=== PATIENT | male | born 1950 | race Caucasian/White ===

== ENCOUNTER → 2019-04-14 09:34 | Outpatient (CLI) | payer MEDICARE, BC ==
[2014-09-24 08:54] VITALS: BMI 35.7
[~2019-04-14 09:34] MED LIST: BAYER CHEWABLE81 MG PO; COREG12.5 MG PO; FISH OIL 1,0001 CA1 PO; GLIPIZIDE10 MG PO; GLUCOPHAGE1000 MG; GLUCOPHAGE1000 MG PO; JANUVIA100 MG PO; LISINOPRIL-HCTZ1 TA2 PO; PLAVIX75 MG; ZOCOR40 MG PO
--- NOTE | 2019-04-17 09:40 | ST ---
PATIENT:BETTY BRYAN MEDICAL RECORD: [id number] SEX: M [facility] ORDER #: ADMISSION DATE: 04/14/19 AGE OF PATIENT: 68 REFERRING PHYSICIAN: INTERPRETING PHYSICIAN: VIK DICKSON MD DATE OF SERVICE: 04/14/2019 PROCEDURE: Nuclear stress test. INDICATION: Angina, coronary artery disease, shortness of breath, hypertension, and hyperlipidemia. He was exercised on standard Lexiscan protocol with 33 mCi of sestamibi injected at peak stress, 11 mCi were used previously for rest images. FINDINGS: Gated SPECT reveals decreased, ejection fraction at 40% with decreased thickening and brightening throughout the inferior segments. SPECT imaging Cardiolite was used as myocardial perfusion agent. There is a large fixed perfusion defect inferiorly as well as apically compatible with previous inferoapical myocardial infarction; however, there is reversibility anteriorly, this includes the basal, mid, apical anterior segments. The degree of reversibility is moderate. The amount of myocardial involved between both defects is extremely large. OVERALL IMPRESSION: This is a high risk abnormal nuclear stress test. Fixed perfusion defect inferiorly, reversible ischemia anteriorly suggestive of multivessel coronary artery disease with an ischemic cardiomyopathy, ejection fraction 40%. We would proceed with coronary angiography as followup study. TRANSINT:[id number] Voice Confirmation ID: [id number] DOCUMENT ID: [id number] VIK DICKSON MD at 0940 CC: [id number] DICTATION DATE: 04/14/19 1657 ORACLE BUSINESS ANALYST: 04/15/19 0420 DEP CLI 04/14/19 [id number] [place] [address]
--- NOTE | 2019-04-17 09:40 | EC ---
PATIENT:BETTY BRYAN DATE OF SERVICE: 04/14/19 SEX: M MEDICAL RECORD: [id number] DATE OF : 50 [facility] AGE OF PATIENT: 68 ADMISSION DATE: 04/14/19 REFERRING PHYSICIAN: INTERPRETING PHYSICIAN: VIK MOORE MD ECHOCARDIOGRAM REPORT ECHO CHARGES 4 ECHO COMPLETE Date: 04/14/19 CLINICAL DIAGNOSIS: BATRES/SOB/A-FLUTTER H/O HTN/CAD ECHOCARDIOGRAPHIC MEASUREMENTS (adult normal given) AC root (d.<3.7cm) 2.8 cm LV Septum d (<1.2 cm> 1.3 cm Valve Excursion 1.4 cm LV Septum (systole) 1.3 cm Left Atria (s.<4.0cm> 4.9 cm LVPW d(<1.2cm) 1.1 cm RV (d.<2.3cm) 3.4 cm LVPW (sytole) 1.4 cm LV diastole(<5.6CM) 5.5 cm MV E-F(>70mm/sec) cm LV systole 3.6 cm LVOT Diameter 1.9 cm MV exc.(>10mm) cm Est.ejection fraction (50-75%) % DOPPLER: LVIT cm/sec A cm/sec E 103 cm/sec LA cm/sec RVSP 35.0 mmHg LVOT 73.0 cm/sec AOP1/2T m/s Asc. Ao 100 cm/sec RVOT 53.0 cm/sec RA cm/sec PA 70.0 cm/sec AV Gradient Peak 3.9 mmHg AV Mean 2.0 mmHg AV Area 2.3 cm MV Gradient Peak 4.9 mmHg MV Mean 2.3 mmHg MV Area cm COMMENTS: OP - HC Operations Systems Specialist: Bailee VILLAR [place] Machine Strap Buckler: 1 Dr. Moore TAPE# PACS Pericardial Effusion N DATE OF SERVICE: 04/14/2019 FINDINGS: 1. Left ventricular chamber size is within normal limits. Left ventricular systolic function is markedly reduced. Overall ejection fraction is 20% to 25%. 2. Left atrium is enlarged at 4.9 cm. Right atrium and right ventricular chamber sizes are as well mildly dilated. 3. Valvular structures have normal structure and motion. 4. Doppler interrogation reveals trace tricuspid regurgitation. No other valvular insufficiency or stenosis. Pulmonary systolic pressure is estimated at ECHOCARDIOGRAM REPORT [id number] BETTY BRYAN 35 mmHg. 5. No evidence of pericardial effusion or left ventricular thrombus. TRANSINT:[id number] Voice Confirmation ID: [id number] DOCUMENT ID: [id number] VIK MOORE MD at 0940 CC: [id number] DICTATION DATE: 04/14/19 1644 CIRCULATION LIBRARIAN: 04/14/19 1739 DEP CLI 04/14/19 [id number] [place] [address]
== END | disposition home or self-care (01) ==
LOC: D.HCCARDIO 09:34
PROVIDERS: ATTEND Internal Medicine Interventional Cardiology
DX: I25.810 Atherosclerosis of coronary artery bypass graft(s) without angina pectoris (principal)

== ENCOUNTER 2019-04-21 08:44 | Outpatient (CLI) | payer MEDICARE, BC ==
[~2019-04-21] VITALS: Ht 180.3 cm; Wt 109.1 kg
--- NOTE | ~2019-04-21 | HEMODYNAMI ---
PATIENT:BETTY BRYAN MEDICAL RECORD: [id number] : 50 LOCATION:D.CAT ADMISSION DATE: 04/21/19 Generatedon:04/21/201911:59 Patient name: BETTY BRYAN Patient #: [id number] SSN: DO B: 1950 Date of study: 04/21/2019 Page: Of Hemodynamic Procedure Report Patient Data Patient Demographics Procedure consent was obtained First Name: BETTY Gender: Male Last Name: IRVIN : 1950 [facility] Initial: D Age: 68 year(s) Patient #: [id number] Race: Unknown Additional ID: [id number] Contact details [address]: [address] [place] [address] State: [place] City: [place] Zip code: [address] Past Medical History Allergies Allergen Reaction Date Comments Reported Other allergy 04/21/2019 PCN, SULFA Admission Admission Data Admission Date: 04/21/2019 Admission Time: 8:44 Admit Source: Other Weight (lbs.): 240.31 Weight (kg.): 109 Lab Results Lab Result Date: 04/21/2019 Lab Result Time: 0:00 Biochemistry Name Units Result Min Max BUN mg/dl 21 --(----)-* 7 18 Creatinine mg/dl 1.1 --(--*-)-- 0.6 1.3 CBC Name Units Result Min Max Hematocrit % 50.7 --(--*-)-- 42 54 Hemoglobin g/dl 16.6 --(---*)-- 13.5 17.5 Procedure Procedure Types Cath Procedure Diagnostic Procedure LHC LHC w/Coronaries w/Grafts Sedation Charges Moderate Sedation up to 15 minutes PCI Procedure Coronary Stent Coronary Stent Initial Peripheral Cath Diagnostic Procedure Head Coach Peripheral Procedures Hjezo-Qoldnxh-Qup-Off Procedure Description Procedure Date Procedure Date: 04/21/2019 Procedure Start Time: 11:37 Procedure End Time: 11:59 Procedure Staff Name Function Marcus Moore MD Performing Physician Faby Pineda RT Monitor Francis Irwin RT Francisco J Hewitt RN Nurse Procedure Data Cath Procedure Fluoroscopy Diagnostic fluoroscopy Total fluoroscopy Time: 4.2 time: 4.2 min min Diagnostic fluoroscopy Total fluoroscopy dose: dose: 1226 mGy 1226 mGy Contrast Material Contrast Material Type Amount (ml) Isovue 300 153 Entry Location Entry Primary Successful Side Size Upsize Upsize Entry Closure Succes sful Closure Location (Fr) 1 (Fr) 2 (Fr) Remarks Device Remarks Femoral Right 5 Fr 6 Fr Exoseal artery Short Estimated blood loss: 10 ml Diagnostic catheters Device Type Used For End Catheter Placement MULTIPACK Pigtail 5 Fr Procedure catheter MULTIPACK JL 4.0 5Fr Procedure catheter MULTIPACK 3DRC 5Fr Procedure catheter DIAGNOSTIC AR2 MOD 5 Fr Procedure catheter ([id number]) MULTIPACK Pigtail 5 Fr Procedure catheter Procedure Complications No complications Procedure Medications Medication Administration Route Dosage Oxygen etCO2 Nasal cannula 2 l/min Lidocaine 2% added to field 20 Heparin Flush Bag added to field 2 bags (1000units/500ml NS) 0.9% NaCl I.V. 100 ml/hr Versed I.V. 1 mg Fentanyl I.V. 50 mcg Heparin Bolus I.V. 4000 units Integrilin (Bolus I.V. 9.5 ml 2mg/ml) Plavix P.O. 600 mg Hemodynamics Rest Heart Rate: 63 (bpm) Snapshots Pre Cath Intra NCS Post Cath Vital Signs Time Heart Resp SPO2 etCO2 NIBP (mmHg) Rhythm Pain Sedation Rate (ipm) (%) (mmHg) Status Level (bpm) 11:34:09 88 29 94 0 109/80(97) A-Flutter 0 (11) 10(A) , No pain 11:38:19 92 21 95 8.9 112/80(94) A-Flutter 0 (11) 10(A) , No pain 11:42:27 88 31 96 8.9 119/88(101) A-Flutter 0 (11) 9(A) , No pain 11:46:43 86 30 96 8.9 124/78(92) A-Flutter 0 (11) 9(A) , No pain 11:51:01 88 24 98 8.9 113/75(94) A-Flutter 0 (11) 9(A) , No pain 11:55:13 83 18 98 41 112/77(93) A-Flutter 0 (11) 10(A) , No pain Medications Time Medication Route Dose Verified Delivered Reason Notes Effectiveness by by 11:32:01 Heparin Flush added 2 Marcus Velazquez used for Bag to bags Teresa Moore MD procedure (1000units/500ml field NS) 11:32:22 0.9% NaCl I.V. 100 Marcus Purvis Per physician ml/hr Teresa Hewitt RN 11:32:30 Oxygen etCO2 2 Marcus Purvis used for Nasal l/min Teresa Hewitt RN procedure cannula 11:32:52 Lidocaine 2% added 20ml Marcus Velazquez for local to vial Teresa Moore MD anesthetic field 11:36:31 Versed I.V. 1 mg Marcus Purvis for sedation Teresa Hewitt RN 11:36:36 Fentanyl I.V. 50 Marcus Purvis for sedation mcg Teresa Hewitt RN 11:46:00 Heparin Bolus I.V. 4000 Marcus Purvis for verif ied units Teresa Hewitt RN anticoagulation with dr moore 11:47:40 Integrilin I.V. 9.5 Marcus Purvis for Waste d (Bolus 2mg/ml) ml Teresa Hewitt RN antiplatelet 0.5 ml therapy of vial 11:57:18 Plavix P.O. 600 Marcus Purvis for mg Teresa Hewitt RN antiplatelet therapy Procedure Log Time Note 10:38:23 Informed consent obtained and on chart 10:38:39 Admit Source: Other 10:42:35 Diagnostic Cath status Elective 10:42:36 Time tracking: Regular hours (M-F 7:00 - 5:00) 10:42:41 Plan of Care:Hemodynamics will remain stable., Cardiac rhythm will remain stable., Comfort level will be maintained., Respiratory function will remain adequate., Patient/ family verbilizes understanding of procedure., Procedure tolerated without complication., Recovers from procedure without complications.. 10:49:43 H&P Date Dictated: 03/31/2019 Within 30 days and on chart., H&P Addendum completed by physician on day of procedure. (MUST COMPLETE FOR ALL OUTPATIENTS). 11:10:54 Yaniv Hewitt RN sent for patient. Start room use. 11:16:28 Patient received from Pre/Post Procedure Room to CCL 1 Alert and oriented. Tansferred to table in Supine position. 11:16:29 Warm blankets applied, and valeri hugger turned on for patient comfort. 11:16:29 Correct patient and procedure confirmed by team. 11:16:30 ECG and BP/O2 sat monitors applied to patient. 11:25:06 Pre-procedure instructions explained to patient. 11:25:07 Pre-op teaching completed and patient verbalized understanding. 11:25:10 Family in patients room. 11:25:11 Patient NPO since Midnight. 11:25:24 Patient allergic to Other allergyPCN, SULFA 11:25:26 Is patient on blood thinner?No 11:25:27 Patient diabetic? Yes. 11:25:29 If diabetic: On Metformin? Yes 11:25:31 If on Metformin: Last Dose? 04/19/2019 11:28:09 Previous problem with sedation/anesthesia? N/A ? 11:28:11 Snore? Yes 11:28:13 Sleep apnea? Yes 11:28:14 Deviated septum? No 11:28:16 Opens mouth fully? Yes 11:28:18 Sticks out tongue? Yes 11:28:19 Airway obstruction? No ? 11:28:23 Pre procedure: right dorsailis pedis pulse 1+ Palpable, but thready & weak; easily obliterated 11:28:25 Dentures? No ? 11:28:32 IV patent on arrival in left hand with 0.9% NaCl at [facility] 11:29:09 Patient Weight : 240.31 lbs 11:29:50 Lab Result : BUN 21 mg/dl 11:29:50 Lab Result : Hemoglobin 16.6 g/dl 11:29:50 Lab Result : Creatinine 1.1 mg/dl 11:29:50 Lab Result : Hematocrit 50.7 % 11:29:54 Lab results completed and on chart. 11:29:57 Right groin area was prepped with chlora-prep and draped in sterile fashion 11::58 Alarms reviewed by R. N. 11:29:58 Sharps counted by scrub and verified by R.N. 11:30:11 Procedure type changed to Cath procedure, Diagnostic procedure, LHC, LHC w/Coronaries w/Grafts, Sedation Charges, Moderate Sedation up to 15 minutes, PCI procedure, Coronary Stent, Coronary Stent Initial, Peripheral Cath Diagnostic Procedure, Head Coach Peripheral Procedures, Jhhrc-Ljqlvbm-Bks-Off 11:30:16 Use device set Femoral Dx 11:30:17 ACIST Syringe (75937) opened to sterile field. 11:30:17 Bag Decanter (2002S) opened to sterile field. 11:30:18 ACIST Hand Control (54540) opened to sterile field. 11:30:19 ACIST Manifold (37012) opened to sterile field. 11:30:19 Tegaderm 4 x 4 (1626W) opened to sterile field. 11:30:22 Medline Cath Pack ([id number]) opened to sterile field. 11:30:22 DIAGNOSTIC WIRE .035 260cm J wire (970880) opened to sterile field. 11:30:23 DIAGNOSTIC Multipack 5Fr catheter set (LT8632) opened to sterile field. 11:30:24 SHEATH 5FR [place] (HNF879) opened to sterile field. 11:32:01 Heparin Flush Bag (1000units/500ml NS) 2 bags added to field was administered by Marcus Moore MD; used for procedure; :32:22 0.9% NaCl 100 ml/hr I.V. was administered by Yaniv Hewitt RN; Per physician; 11:32:30 Oxygen 2 l/min etCO2 Nasal cannula was administered by Yaniv Hewitt RN; used for procedure; 11:32:52 Lidocaine 2% 20ml vial added to field was administered by Marcus Moore MD; for local anesthetic; 11:33:00 Vital chart was started 11:33:02 Baseline sample Acquired. 11:33:08 Rhythm: atrial flutter 11:33:15 Full Disclosure recording started 11:34:17 Zero performed for pressure channel P1 11:34:38 Zero performed for pressure channel P1 11:34:54 Zero performed for pressure channel P1 11:35:00 --------ALL STOP TIME OUT------ 11:35:01 Final Timeout: patient, procedure, and site verified with staff and physician. All members of the team are in agreement. 11:35:02 Right groin site verified by team. 11:35:08 Maximum allowable Isovue 300 dose 300ml. Physician notified. (300ml for normal creatinines. For patients with creatinine of 1.7 or higher multiply weight(kg) x 5 divided by creatinine.) 11:35:16 Fire Safety Assessment: A--An alcohol-based skin anteseptic being used preoperatively., C--Open oxygen or nitrous oxide is being used., D--An ESU, laser, or fiber-optic light is being used. 11:35:19 Physical assessment completed. ASA score P 2 - A patient with mild systemic disease as per Marcus Moore MD. 11:35:21 Sedation plan: IV Moderate Sedation Medication:Versed, Fentanyl 11:36:31 Versed 1 mg I.V. was administered by Yaniv Hewitt RN; for sedation; 11:36:36 Fentanyl 50 mcg I.V. was administered by Yaniv Hewitt RN; for sedation; 11:37:21 Procedure started. 11:37:24 Local anesthetic to right femoral artery with Lidocaine 2% by Marcus Moore MD.INITIAL ACCESS ONLY 11:37:56 A 5 Fr sheath was inserted into the Right Femoral artery 11:38:09 A MULTIPACK Pigtail 5 Fr catheter was advanced over the wire and used for Procedure. 11:38:22 LV gram done using CUMMINGS 11:38:24 Injector settings: Ml/sec: 10, Volume: 20, 11:38:48 EF : 20 % 11:38:50 Catheter removed. 11:39:00 A MULTIPACK JL 4.0 5Fr catheter was advanced over the wire and used for Procedure. 11:39:41 LCA angiography performed. 11:39:43 Catheter removed. 11:40:07 A MULTIPACK 3DRC 5Fr catheter was advanced over the wire and used for Procedure. 11:41:03 ARZATE to LAD angiography performed. 11:42:25 RCA angiography performed. 11:42:52 Catheter removed. 11:43:18 A DIAGNOSTIC AR2 MOD 5 Fr catheter ([id number]) was advanced over the wire and used for Procedure. 11:43:22 INFLATOR Merit BasixCompak (VW5395) opened to sterile field. 11:43:26 SHEATH 6FR [place] (ETE113) opened to sterile field. 11:43:46 SVG to Diag angiography performed. 11:43:52 SVG to RCA occluded. 11:44:21 Sheath upsized to a 6 Fr Short. 11:44:25 CHOICE PT Extra Support 182cm wire ([id number]) opened to sterile field. 11:44:33 GUIDE 6FR 3DRC catheter (LT55RPD) opened to sterile field. 11:44:58 6 Fr 3DRC guide catheter was inserted over the wire 11:46:00 Heparin Bolus 4000 units I.V. was administered by Yaniv Hewitt RN; for anticoagulation; verified with dr moore 11:46:08 Guide catheter removed. 11:46:26 A MULTIPACK Pigtail 5 Fr catheter was advanced over the wire and used for Procedure. 11:46:36 PIGTAIL ADVNACED FOR AFRO 11:47:17 Abdominal angiogram w/ runoff was performed. 11:47:34 Right leg runoff performed. 11:47:40 Integrilin (Bolus 2mg/ml) 9.5 ml I.V. was administered by Yaniv Hewitt RN; for antiplatelet therapy; Wasted 0.5 ml of vial 11:47:57 Left leg runoff performed. 11:48:30 Catheter removed. 11:48:41 6 Fr 3DRC guide catheter was inserted over the wire 11:50:46 CHOICE ES 182 wire advanced. 11:51:28 Wire advanced across lesion. 11:51:46 Place stent Inflation Number: 1 A BILL RX 3.5 x 22 stent ([id number]) was prepped and advanced across the Prox RCA 90. The stent was deployed at 19 ANSELMO for 0:00 (min:sec) 0. 11:51:56 Stent catheter was removed intact over wire. 11:51:57 Wire removed. 11:51:57 Guide catheter removed. 11:52:32 EXOSEAL 6Fr (EX600) opened to sterile field. 11:52:45 Sheath removed intact; hemostasis achieved with Exoseal to the Right Femoral artery. 11:53:01 Procedure ended.(Physican Out) 11:53:55 Fluoroscopy time 04.20 minutes. 11:53:58 Contrast amount:Isovue 300 153ml. 11:54:02 Fluoroscopy dose: 1226 mGy 11:54:02 Flurop Dose total: 1226 11:54:05 Sharps counted by scrub and verified by R.N. 11:54:07 Post-op/insertion site Right Femoral artery dressed using a 4 x 4 and Tegaderm. 11:54:10 Post-procedure physical assessment completed. ASA score P 2 - A patient with mild systemic disease as per Marcus Moore MD. 11:54:14 Post procedure rhythm: unchanged. 11:54:16 Estimated blood loss: 10 ml 11:54:17 Post procedure instruction explained to patient.Patient verbalizes understanding. 11:54:18 Patient needs reinforcement of post procedure teaching. 11:55:31 Procedure and supply charges have been captured, reviewed, submitted and are correct. 11:55:34 Procedure Complication : No complications 11:57:18 Plavix 600 mg P.O. was administered by Yaniv Hewitt RN; for antiplatelet therapy; 11:58:58 Vital chart was stopped 11:58:58 See physician's report for complete and final results. 11:58:59 Report given to Pre/Post Procedure Room. 11:59:01 Patient transfered to Pre/Post Procedure Room with Bed. 11:59:03 Procedure ended. 11:59:03 Full Disclosure recording stopped 11:59:06 End room use (Document Last) Intervention Summary Intervention Notes Time ActionType Lesion and Equipment Used Action# Pressure Duration Attributes 11:51:46 Place stent Prox RCA BILL RX 3.5 x 1 19 00:00 22 stent ([id number]) Device Usage Item Name Manufacture Quantity Catalog Number Hospital Part Current M inimal Lot# / Charge Number Stock Stock Serial# Code ACIST Syringe Acist 1 73670 111388 887173 128852 2 0 (77177) Medical Systems Inc Bag Decanter Microtek 1 2001S 851091 88029 484225 5 (2001S) Medical Inc. ACIST Hand Acist 1 91105 114398 931981 684019 5 Control Medical (42454) Systems Inc ACIST Manifold Acist 1 42480 788873 000624 992125 5 (89510) Medical Systems Inc Tegaderm 4 x 4 3M 1 1626W 404311 732945 184099 5 (1626W) Medline Cath Medline 1 [id number] 323759 69711 757867 5 Pack ([id number]) DIAGNOSTIC St Musa 1 685739 530479 371423 777089 3 0 WIRE .035 260cm J wire (042197) DIAGNOSTIC Cardinal 1 IU0084 646154 71297 639676 3 0 Multipack 5Fr Health catheter set (OE3885) SHEATH 5FR Terumo 1 JDE722 839012 833097 277751 5 [place] (YDJ814) MULTIPACK Cardinal 1 370302 5 Pigtail 5 Fr Health catheter MULTIPACK JL Cardinal 1 438526 5 4.0 5Fr Health catheter MULTIPACK 3DRC Cardinal 1 059123 5 5Fr catheter Health DIAGNOSTIC AR2 Cardinal 1 [id number] 264332 760541 506199 2 0 MOD 5 Fr Health catheter (613323B) INFLATOR Merit Merit 1 WD1321 149088 518184 090577 1 5 BasixComflStory [employer] (MY0287) SHEATH 6FR Terumo 1 VUI545 788360 065293 481017 4 0 [place] (DCW821) CHOICE PT [place] 1 [id number] 787279 369832 560016 5 Extra Support Scientific 182cm wire ([id number]) GUIDE 6FR 3DRC Medtronic 1 [id number] 231241 812147 824539 1 catheter ([id number]) BILL RX 3.5 x Medtronic 1 [id number] 073940 6575643 020880 5 [id number] 22 stent ([id number]) EXOSEAL 6Fr Cardinal 1 EX600 138103 517197 189049 1 0 (EX600) Health Signature Audit [place] Stage Time Signature Unsigned Intra-Procedure 04/21/2019 Faby Pineda 11:59:24 AM RT(R) Signatures Monitor : Faby Pineda Signature : RT Date : Time : [address] [place] [address]
[2019-04-21] MEDS ORDERED: BETAPACE 80 MG80 MG PO (09:49)
[2019-04-21] MEDS ORDERED: FARXIGA10 MG PO (09:50)
[2019-04-21 09:56] VITALS: BP 121/82; Ht 180.3 cm; Wt 109.1 kg
[2019-04-21 10:13] LABS: BASOPHILS 0.4 % (0-2); EOSINOPHILS 1.4 % (0-7); HEMATOCRIT 50.7 % (42.0-54.0); HEMOGLOBIN 16.6 g/dL (13.5-17.5); IMMATURE GRANULOCYTES 0.2 % (0-5); LYMPHOCYTES 22.4 % (15-50); MCH 27.9 pg (26.0-34.0); MCHC 32.7 g/dL (31.0-37.0); MCV 85.2 fL (80.0-100.0); MEAN PLATELET VOLUME 9.1 fL (7.4-10.4); MONOCYTES 12.8 % (2-11); NEUTROPHILS 62.8 % (40-80); PLATELET COUNT 311 10x3/uL (130-400); RBC 5.95 10x6/uL (4.20-6.10); RDW 15.7 % (11.5-14.5); WBC 10.9 10x3/uL (4.8-10.8)
[2019-04-21 10:57] LABS: ANION GAP 11.1 mmol/L (8-16); CARBON DIOXIDE 31.3 mmol/L (21.0-32.0); CREATININE - SERUM 1.1 mg/dL (0.6-1.3); POTASSIUM - SERUM 4.4 mmol/L (3.5-5.1)
--- NOTE | 2019-04-21 12:09 | NUR ---
PT ARRIVED BY STRETCHER. PLACED ON MONITORS. ASSESSMENT COMPLETED. CALL LIGHT WITHIN REACH.
[2019-04-21] MEDS ORDERED: BAYER CHEWABLE81 MG PO (12:12)
[2019-04-21] MEDS ORDERED: PLAVIX75 MG PO (12:13)
[2019-04-21] MEDS ORDERED: PLAVIX75 MG (12:13)
--- NOTE | 2019-04-21 12:26 | NUR ---
PT RESTING COMFORTABLY. VSS. RIGHT GROIN DRESSING C/D/I. NO S/S OF HEMATOMA NOTED. RIGHT PEDAL PULSE PALPABLE. NO NEEDS AT THIS TIME.
--- NOTE | 2019-04-21 13:00 | NUR ---
PT RESTING COMFORTABLY. VSS AT THIS TIME. RIGHT GROIN DRESSING C/D/I. NO S/S OF HEMATOMA NOTED. RIGHT PEDAL PULSE PALPABLE.
--- NOTE | 2019-04-21 13:30 | NUR ---
RIGHT GROIN DRESSING C/D/I. NO S/S OF HEMATOMA NOTED. VSS. RIGHT PEDAL PULSE PALPABLE. DENIES PAIN/NAUSEA.
--- NOTE | 2019-04-21 14:05 | NUR ---
PT RESTING COMFORTABLY. VSS. RIGHT GROIN DRESSING C/D/I. DENIES PAIN/NAUSEA. NO NEEDS AT THIS TIME.
--- NOTE | 2019-04-21 14:32 | NUR ---
PT SLEEPING, RESP WITH EASE ON ROOM AIR. DRESSING CDI TO RIGHT GROIN, PEDAL PULSES PALPABLE. HOB IS FLAT, VSS, CALL LIGHT IN REACH.
--- NOTE | 2019-04-21 15:01 | NUR ---
PT AWAKE, DENIES ANY C/O. VOIDED 400 CC CLEAR YELLOW URINE TO URINAL. VSS, PO FLUIDS SERVED. FRIEND AT BEDSIDE. DRESSING CDI, PEDAL PULSES PALPABLE.
--- NOTE | 2019-04-21 15:23 | NUR ---
HOB ELEVATED 30 DEGREES AND SANDWICH SERVED. DRESSING IS CDI TO RIGHT GROIN, AREA IS SOFT AND NONTENDER. PEDAL PULSES PALPABLE. VSS. FRIEND AT BEDSIDE.
--- NOTE | 2019-04-21 15:47 | NUR ---
DC INSTRUCTIONS REVIEWED WITH PT AND SIGNIFICANT OTHER WHO VERBALIZE UNDERSTANDING. PLAVIX PRESCRIPTION TO PT, PT AND SO VERBALIZE UNDERSTANDING OF STARTING THIS MEDICATION TOMORROW. IV DC'D WTIH CATH INTACT AND PT IS DRESSING FOR DC TO HOME WITH ASISST. PT HAS VOIDED ADDITIONAL 300 CC CLEAR YELLOW URINE TO URINAL. DENIES ANY C/O.
--- NOTE | 2019-04-21 16:19 | NUR ---
1605 PT HAS DRESSED FOR DC TO HOME. IS ALERT AND DENIES ANY C/O. PT ESCORTED TO PRIVATE AUTO VIA WC BY NURSE WITH SIGNIFICANT OTHER DRIVING HIM HOME.
--- NOTE | 2019-04-22 11:19 | OP ---
PATIENT NAME: BETTY BRYAN MEDICAL RECORD: [id number] :50 LOCATION:D.CAT ADMISSION DATE: SURGEON: VIK DICKSON MD DATE OF OPERATION: 04/21/2019 PROCEDURES: 1. Aortofemoral runoff. 2. Abdominal aortography. INDICATION: Peripheral vascular disease, difficulty obtaining access for cardiac intervention. Diagnostic catheters would pass through the iliac area; however, initially, the guide would not pass. At that time, we decided to perform aortofemoral runoff. FINDINGS: Abdominal aortography was performed. The catheter was pulled down for aortofemoral runoff. Abdominal aortography reveals mild diffuse disease of the abdominal aorta and mild calcification, but no flow-limiting stenosis. No dissection or aneurysm formation. RIGHT LEG: A. Iliac: The iliac has moderate diffuse disease, but no flow-limiting stenosis. B. Femoral system: The common, superficial, and deep femoral have moderate irregularities, but no flow-limiting stenosis. C. Popliteal and infrapopliteal vessels have moderate irregularities, but no flow-limiting stenosis. There is 3-vessel runoff to the foot. LEFT LEG: A. Iliac: The iliac has moderate diffuse disease, but no flow-limiting stenosis. B. Femoral system: The common, superficial, and deep femoral have moderate irregularities, but no flow-limiting stenosis. C. Popliteal and infrapopliteal vessels have moderate irregularities, but no flow-limiting stenosis. There is 3-vessel runoff to the foot. 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 After this, the guide was manipulated through the area of moderate diffuse disease successfully and cardiac intervention was undertaken. TRANSINT:[id number] Voice Confirmation ID: [id number] DOCUMENT ID: [id number] VIK DICKSON MD at 1119 CC: [id number] DICTATION DATE: 04/21/19 1219 CHAR FILTER OPERATOR: 04/21/19 1350 DEP CLI 04/21/19 [id number] [place] [id number]
--- NOTE | 2019-04-22 11:19 | OP ---
PATIENT NAME: BETTY BRYAN MEDICAL RECORD: [id number] :50 LOCATION:D.[facility] ADMISSION DATE: SURGEON: VIK DICKSON MD DATE OF OPERATION: 04/21/2019 PROCEDURES: 1. PTCA stent RCA. 2. Left heart catheterization. 3. Selective coronary angiography. 4. Vein graft angiography. 5. ARZATE angiography. 6. Left ventriculogram. INDICATION: Angina, coronary artery disease, previous coronary artery bypass graft surgery. PROCEDURE IN DETAIL: After informed consent was obtained and after a detailed description of risks, benefits as well as alternative therapies, the patient elected to proceed with angiogram and angioplasty. The right femoral area was prepped and draped in normal sterile fashion. Right femoral artery was cannulated via modified Seldinger technique with placement of 6-Greek sheath. All catheters exchanged through this sheath. FINDINGS: Left ventriculogram was performed in standard 30-degree CUMMINGS view, reveals global hypokinesis, ejection fraction in the 20% to 25% range. SELECTIVE CORONARY ANGIOGRAPHY: 1. Left main is with no significant angiographic disease. 2. Left anterior descending is totally occluded. 3. Left circumflex is totally occluded. 4. Right coronary artery has 90% stenosis proximally. 5. ARZATE to the LAD is patent. Distal LAD is widely patent. 6. Vein graft to the circumflex is patent. Distal circumflex is widely patent. 7. Vein graft to the RCA is closed. PTCA STENT OF THE RCA: The stent used was a 3.5 x 22 mm Nathan. Result was 0% residual stenosis. OVERALL IMPRESSION: Successful percutaneous transluminal coronary angioplasty stent of the right coronary artery going from 90% initial stenosis proximally to 0% residual. TRANSINT:[id number] Voice Confirmation ID: [id number] DOCUMENT ID: [id number] VIK DICKSON MD at 1119 CC: [id number] DICTATION DATE: 04/21/19 1208 SIZING SPRAYER: 04/21/19 1344 DEP CLI 04/21/19 [place] [id number]
== END 2019-04-21 16:05 | disposition home or self-care (01) ==
LOC: D.CATH 08:44
PROVIDERS: ATTEND Internal Medicine Interventional Cardiology
DX: I25.119 Atherosclerotic heart disease of native coronary artery with unspecified angina pectoris (principal); I25.719 Atherosclerosis of autologous vein coronary artery bypass graft(s) with unspecified angina pectoris; I70.0 Atherosclerosis of aorta; Z01.812 Encounter for preprocedural laboratory examination
CPT/HCPCS: 93459; C9600

== ENCOUNTER → 2020-03-01 12:37 | Outpatient (CLI) | payer MEDICARE, BC ==
[2019-04-21 09:56] VITALS: BMI 33.5
[~2020-03-01 12:37] MED LIST changes: +BETAPACE 80 MG80 MG PO; +FARXIGA10 MG PO; +PLAVIX75 MG PO
--- NOTE | 2020-03-03 14:09 | EC ---
PATIENT:BETTY BRYAN DATE OF SERVICE: 03/01/20 SEX: M MEDICAL RECORD: [id number] DATE OF : 50 LOCATION:D[facility] AGE OF PATIENT: 69 ADMISSION DATE: 03/01/20 REFERRING PHYSICIAN: INTERPRETING PHYSICIAN: BRENDA ADAMS MD ECHOCARDIOGRAM REPORT ECHO CHARGES 4 ECHO COMPLETE Date: 03/01/20 CLINICAL DIAGNOSIS: CARDIOMYOPATHY H/O CAD/HTN/A-FIB ECHOCARDIOGRAPHIC MEASUREMENTS (adult normal given) AC root (d.<3.7cm) 3.5 cm LV Septum d (<1.2 cm> 1.4 cm Valve Excursion 1.0 cm LV Septum (systole) 2.0 cm Left Atria (s.<4.0cm> 4.8 cm LVPW d(<1.2cm) 1.2 cm RV (d.<2.3cm) 3.8 cm LVPW (sytole) 1.5 cm LV diastole(<5.6CM) 5.2 cm MV E-F(>70mm/sec) cm LV systole 3.5 cm LVOT Diameter 2.2 cm MV exc.(>10mm) cm Est.ejection fraction (50-75%) % DOPPLER: LVIT cm/sec A cm/sec E 110 cm/sec LA cm/sec RVSP 30.0 mmHg LVOT 66.0 cm/sec AOP1/2T m/s Asc. Ao 105 cm/sec RVOT 51.0 cm/sec RA cm/sec PA 81.0 cm/sec AV Gradient Peak 4.4 mmHg AV Mean 2.4 mmHg AV Area 2.5 cm MV Gradient Peak 6.7 mmHg MV Mean 2.5 mmHg MV Area cm COMMENTS: OP - HC Obiee Report Developer: 1 AUREA DUNIA Test Consultant: 3 Dr. Santana TAPE# PACS Pericardial Effusion N DATE OF SERVICE: Adequate 2D, color flow imaging, spectral Doppler, and M-Mode. Mild LVH. LV appears to be mildly globally hypo with EF mildly reduced at 40% to 45%. Aortic valve is tricuspid. No evidence of stenosis by Doppler interrogation. Left atrium dilated at 4.8 cm. Mitral valve shows no prolapse. Trace MR. Right-sided chambers are grossly normal. Trace TR. TRANSINT:[id number] Voice Confirmation ID: [id number] DOCUMENT ID: [id number] ECHOCARDIOGRAM REPORT [id number] BETTY BRYAN GREGORY A MD at 1409 CC: [id number] DICTATION DATE: 03/01/20 152 GRINDER SET UP OPERATOR: 03/01/202231 DEP CLI 03/01/20 [place] [id number] [place] [address]
== END | disposition home or self-care (01) ==
LOC: D.HCCECHO 12:37
PROVIDERS: ATTEND Internal Medicine Interventional Cardiology
DX: R06.00 Dyspnea, unspecified (principal)